=== PATIENT | male | born 1990 | race Caucasian/White ===

== ENCOUNTER → 2019-09-09 | Outpatient (CLI) | payer BC ==
--- NOTE | 2019-09-09 21:09 | CONS ---
CONSULTATION DATE OF SERVICE: 09/09/2019 29-year-old gentleman who has been evaluated in [facility] Center for possible obstructive sleep apnea-hypopnea syndrome. HISTORY OF PRESENT ILLNESS/SLEEP-WAKE EVALUATION: SLEEP SCHEDULE: Patient usual sleep schedule on weekdays from 12 midnight to 2:00 am until 7:30 a.m. On weekends from the same time until noon or 1:00 pm. FALLING ASLEEP: He does have problem with falling asleep, has TV set in bedroom. DURING SLEEP: He usually sleeps on the side position with loud snoring, witnessed episodes of stopped breathing during sleep and awakenings from sleep with heartburn and gasping for air. Patient wakes up from sleep around 3 times with 2 episodes of nocturia. No history of hypnagogic hallucinations, sleep paralysis or cataplexy. DURING THE DAY/SLEEP WAKE EVALUATION: During the day, patient falling asleep, worries about his sleep, has problems with concentration, depression and anxiety. [place] Sleepiness Scale significantly increased to 16, including sleepiness while driving the car. PAST MEDICAL HISTORY: Positive for bilateral deep venous thrombosis of lower extremities. PAST SURGICAL HISTORY: Past surgical history of hernia repair, appendectomy, a surgery for venous problems on the right bilaterally. 14 times last surgery done 6 days ago. MEDICATIONS: None. SOCIAL HISTORY: Negative for smoking. Alcohol consumption occasional. FAMILY HISTORY: Hypertension, heart problems. Sleep apnea, snoring, pneumonia, thyroid problems, diabetes. REVIEW OF SYSTEMS: Awakenings from sleep, significant excessive daytime sleepiness. The patient takes naps usually around 5 or 6:00 pm. PHYSICAL EXAMINATION: During physical exam, gentleman without distress. BP 146/64, HR 78, RR 16, height 5 feet 11 inches, weight 322.6, body mass index 44.9, temperature 98.7, oxygen saturation at room air 95%. Oropharynx low position of soft palate. Mallampati 3. Slight restriction of nasal breathing. NECK: Supple, no JVD. Thyroid is not palpable. LUNGS: Clear to percussion and to auscultation. Good air exchange. No wheezing or rhonchi. HEART: S1, S2 regular. No murmurs, gallops, or rubs. ABDOMEN: Obese. Soft and nontender. Bowel sounds are present. No organomegaly appreciated. EXTREMITIES: Some bruises on the right leg after surgery. FILING MACHINE OPERATOR: Awake, alert, and oriented X3. Cranial nerves 2 to 7 intact. There is no fasciculation or atrophy. noted. No focal deficits observed. IMPRESSION: 1. Loud snoring, witnessed episodes of stopped breathing during the sleep, awakenings from sleep with gasping for air and nocturia. Low position of soft palate, Mallampati 3, sleepiness, obstructive sleep apnea-hypopnea syndrome. 2. Significant excessive daytime sleepiness. [place] Sleepiness Scale is 16. Differential diagnosis should include hypersomnia. 3. History of deep vein thrombosis. 4. Status post 14 surgeries for deep vein thromboses on both legs. 5. Episodes of heartburn and acid reflux during the sleep. 6. Status post hernia repair. 7. Status post appendectomy. PLAN: 1. Sleep study for evaluation of patient's breathing during the sleep. We will start from home with home sleep apnea test. 2. Losing weight. 3. Sleep hygiene in bed for at least 7-1/2 hours. 4. Precautions related to driving. No driving if feeling any sleepiness. 5. CPAP titration for correction of respiratory abnormalities during sleep. Body mass index 44.9. 6. CPAP titration for evaluation of effective CPAP pressure in the office with body mass index 44.9. Thank you very much for allowing me to participate in management of your patient. Sincerely, Rafael Velásquez MD, PhD, FAASM Diplomat of [employer] Roller Operator of [facility] [place] MMODL / ALEN: [id number] /
== END | disposition home or self-care (01) ==
LOC: SLEEP 13:19
PROVIDERS: ATTEND Internal Medicine
DX: G47.33 Obstructive sleep apnea (adult) (pediatric) (principal); K21.9 Gastro-esophageal reflux disease without esophagitis; Z86.718 Personal history of other venous thrombosis and embolism; Z98.890 Other specified postprocedural states; Z90.49 Acquired absence of other specified parts of digestive tract; Z83.6 Family history of other diseases of the respiratory system
CPT/HCPCS: 99211

== ENCOUNTER → 2020-01-06 | Outpatient (CLI) | payer BC ==
--- NOTE | 2020-01-06 16:30 | PN ---
PROGRESS NOTE DATE OF SERVICE: 01/06/2020 This patient is a 29-year-old gentleman who has been followed in Sleep Center for treatment of severe obstructive sleep apnea-hypopnea syndrome. The patient had a home sleep apnea test which showed extremely severe obstructive sleep apnea with apnea-hypopnea index 90.3 and oxygen desaturation to 57%. Subsequently the patient was started on treatment with AutoPAP, range of pressure 5 to 18. Today is his first visit after starting to use CPAP equipment. The patient is able to use CPAP equipment without significant problems related to mask fitting, pressure, humidification. [place] Sleepiness Scale today is 2. MEDICATIONS: None. PHYSICAL EXAMINATION: GENERAL: A pleasant patient in no distress. VITAL SIGNS: BP 134/72, HR 75, RR 14, weight 333.2 pounds, temperature 97.3, oxygen saturation at room air 96%. HEENT: PERRLA, EOMI. Evaluation of oropharynx showed tongue protrudes midline. Low position of soft palate. Mallampati III. NECK: Supple. No JVD. Thyroid is not palpable. LUNGS: Clear to percussion and to auscultation. Good air exchange. No wheezing or rhonchi. HEART: S1, S2 regular. No murmurs, gallops or rubs. ABDOMEN: Obese. EXTREMITIES: No clubbing or cyanosis. DIP TANKER: Awake, alert, and oriented X3. Cranial nerves 2 to 7 intact. There is no fasciculation or atrophy. noted. No focal deficits observed. I checked the patient's CPAP unit. Range of the pressure is 5 to 18 cm of water. Average pressure 9.1 cm of water. Usage 16/30 nights and 16/30 nights for more than 4 hours, with average usage 7 hours per night. Leak is 17 L/minute, which is borderline. Apnea-hypopnea index is only 0.2, which is absolutely perfect. IMPRESSION: 1. Extremely severe obstructive sleep apnea-hypopnea syndrome; apnea-hypopnea index 90.3 with oxygen desaturation to 57%, under full control with CPAP. Apnea-hypopnea index 0.2. Patient benefitting from treatment. 2. Obesity. 3. Status post deep venous thrombosis of legs bilaterally. 4. Status post appendectomy. 5. Status post inguinal hernia repair. 6. Status post surgery on the skin in the area of right elbow. PLAN: 1. Patient will continue to use CPAP equipment every night for the whole night. 2. Losing weight. 3. Sleep hygiene with regular time in bed for at least 7-1/2 to 8 hours. 4. No driving if feeling any sleepiness. 5. I will maintain all necessary prescriptions for CPAP supplies. Thank you very much for allowing me to participate in the management of your patient. Sincerely, Rafael Velásquez MD, PhD, FAASM Diplomat of [employer] Negative Notcher of [facility] [place] MMODL / AURAN: [id number] /
== END | disposition home or self-care (01) ==
LOC: SLEEP 15:20
PROVIDERS: ATTEND Internal Medicine
DX: G47.33 Obstructive sleep apnea (adult) (pediatric) (principal); E66.9 Obesity, unspecified; Z86.718 Personal history of other venous thrombosis and embolism; Z98.890 Other specified postprocedural states; Z96.621 Presence of right artificial elbow joint

== ENCOUNTER → 2020-07-06 | Outpatient (CLI) | payer BC ==
--- NOTE | 2020-07-07 00:59 | SFUN ---
SLEEP CENTER FOLLOW UP NOTE DATE OF SERVICE: 07/06/2020 This 30-year-old gentleman has been followed in Sleep Center for treatment of obstructive sleep apnea-hypopnea syndrome. The patient is using his CPAP equipment every night for the whole night. Occasionally he may have slight snoring with the machine. He feels that maybe he opens his mouth during sleep. I checked his CPAP unit. Range of the pressure 5 to 18. Average pressure 9.5 cm of water. Usage is 27 out of 30 nights for more than 4 hours with average usage of 6.8 hours per night. Leak is 20 L/minute which is borderline. Apnea-hypopnea index only 0.3, which is perfect. [place] Sleepiness Scale today is 1. MEDICATIONS: None. PHYSICAL EXAMINATION: GENERAL: Patient in no distress. VITAL SIGNS: BP 118/77, HR 81, RR 16, height 5 feet 11-1/4 inches, weight 335.2, temperature 98.6, oxygen saturation at room air 97%. HEENT: PERRLA, EOMI. Oropharynx low position of soft palate. Mallampati 3. NECK: Supple, no JVD. Thyroid is not palpable. LUNGS: Clear to percussion and to auscultation. Good air exchange. No wheezing or rhonchi. HEART: S1, S2 regular. No murmurs, gallops, or rubs. ABDOMEN: Obese. EXTREMITIES: No clubbing or cyanosis. VAULT TELLER: Awake, alert, and oriented X3. Cranial nerves 2 to 7 intact. There is no fasciculation or atrophy. noted. No focal deficits observed. IMPRESSION: 1. Extremely severe obstructive sleep apnea-hypopnea syndrome apnea with AHI 90.3 with oxygen desaturation to 57% on full control with CPAP. Patient demonstrated great compliance with treatment, benefitting from treatment. 2. Obesity. 3. Status post deep venous thrombosis of legs bilaterally. 4. Status post appendectomy. 5. Status post inguinal hernia repair. 6. Status post skin surgery in the area of right elbow. PLAN: 1. Patient will continue to use PAP equipment every night for the whole night. 2. Sleep hygiene with regular time in bed for at least 7-1/2 to 8 hours. 3. Precautions related to driving. No driving if feeling sleepiness. 4. I will maintain all necessary prescription for PAP supplies including mask, tube, filters. 5. Watching weight. 6. No driving if feeling sleepiness. 7. Follow-up visit in 6 months or earlier if patient has any problems. Thank you very much for allowing me to participate in management of your patient. Sincerely, Rafael Velásquez MD, PhD, FAASM Diplomat of [employer] Lining Baster [facility] [place] DENNIS / ALEN: [id number] /
== END | disposition home or self-care (01) ==
LOC: SLEEP 15:17
PROVIDERS: ATTEND Internal Medicine
DX: G47.33 Obstructive sleep apnea (adult) (pediatric) (principal); E66.9 Obesity, unspecified; Z99.89 Dependence on other enabling machines and devices; Z98.890 Other specified postprocedural states; Z90.49 Acquired absence of other specified parts of digestive tract; Z86.718 Personal history of other venous thrombosis and embolism